=== PATIENT | female | born 1995 | race Caucasian/White ===

== ENCOUNTER 2017-01-09 01:37 | Emergency (ER) | payer SELFPAY ==
[2017-01-09 02:08] LABS: Hematocrit 38 % (35-47); Hemoglobin 12.8 g/dl (12.0-16.0); Mean Corpuscular HGB Conc 34 g/dl (31-36); Mean Corpuscular Hemoglobin 30 pg (27-31); Mean Corpuscular Volume 90 fL (80-97); Mean Platelet Volume 8 um3 (7.4-10.4); Red Blood Count 4.23 10^6/ul (4.0-5.4); Red Cell Distribution Width 13 % (10.5-15); White Blood Count 7.8 10^3/ul (3.5-10.8)
[2017-01-09 02:23] LABS: Albumin 4.2 g/dL (3.2-5.2); BUN/Creatinine Ratio 19.6 (8-20); Calcium 8.8 mg/dL (8.6-10.3); EGFR African American 177.5 (>60); Globulin 2.7 g/dL (2-4); Potassium 3.2 mmol/L (3.5-5.0); Total Bilirubin 0.4 mg/dL (0.2-1.0); Total Protein 6.9 g/dL (6.4-8.9)
[2017-01-09] MEDS ORDERED: Potassium Chlor TAB* 20 MEQ TAB.ER PO ONE (04:09)
--- NOTE | 2017-01-09 06:31 | ED ---
Carmelina Negron Edward, scribed for Devon Padilla on 01/09/17 at 0207 . Substance Abuse/Use - HPI Summary HPI Summary: 21 y/o female BIBA c/o EtOH intoxication. LEVEL 5 CAVEAT DUE TO ETOH INTOXICATION - History Of Current Complaint Chief Complaint: EDSubstanceAbuse Stated Complaint: ETOH Hx From Patient Unobtainable Due To: Other - EtOH INTOXICATION PMH/Surg Hx/FS Hx/Imm Hx Previously Healthy: Yes - LEVEL 5 CAVEAT Cardiovascular History: Denies: Hx Myocardial Infarction Opthamlomology History: Denies: Hx Legally Blind - Family History Known Family History: Positive: None - Social History Occupation: Student Lives: Dormitory/Roommates Alcohol Use: Occasionally Hx Substance Use: No Substance Use Type: Reports: None Hx Tobacco Use: No Smoking Status (MU): Never Smoked Tobacco Review of Systems - ROS Summary Review of Systems Summary: LEVEL 5 CAVEAT DUE TO ETOH INTOXICATION. PT IS UNRESPONSIVE. All Other Systems Reviewed And Are Negative: No Physical Exam - Summary Physical Exam Summary: LEVEL 5 CAVEAT DUE TO ETOH INTOXICATION. PT IS UNRESPONSIVE. Triage Information Reviewed: Yes Vital Signs Reviewed: Yes Appearance: Positive: Well-Appearing, No Pain Distress Skin: Positive: Warm, Skin Color Reflects Adequate Perfusion, Dry Head/Face: Positive: Normal Head/Face Inspection Eyes: Positive: EOMI, GABE ENT: Positive: Normal ENT inspection Neck: Positive: Supple, Nontender Respiratory/Lung Sounds: Positive: Clear to Auscultation, Breath Sounds Present Cardiovascular: Positive: RRR, Pulses are Symmetrical in both Upper and Lower Extremities Abdomen Description: Positive: Nontender, Soft Bowel Sounds: Positive: Present Musculoskeletal: Positive: Normal, Strength/ROM Intact Neurological: Positive: Normal, Sensory/Motor Intact, Alert, Oriented to Person Place, Time Diagnostics - Laboratory Result Diagrams: 01/09/17 01:56 01/09/17 01:56 Lab Statement: Any lab studies that have been ordered have been reviewed, and results considered in the medical decision making process. Course/Dx - Course Assessment/Plan: 21 y/o female BIBA c/o EtOH intoxication. LEVEL 5 CAVEAT DUE TO ETOH INTOXICATION. PT IS UNRESPONSIVE. Pt will be d/c home once EtOH levels clear. - Diagnoses Provider Diagnoses: Alcohol intoxication Discharge - Discharge Plan Condition: Stable Disposition: HOME Patient Education Materials: Alcohol Intoxication (ED) Referrals: [facility] [place]] - 3 Days (PLEASE F/U IN 2-3 DAYS) The documentation as recorded by the Carmelina morales Edward accurately reflects the service I personally performed and the decisions made by , Devon Padilla.
[2017-01-09 06:40] VITALS: BP 103/62
== END 2017-01-09 06:43 | disposition home or self-care (01) ==
LOC: ED 01:37
DX: F10.129 Alcohol abuse with intoxication, unspecified (principal)
CPT/HCPCS: 36415; 80053; 80320; 85025; 99283; A9270-GY; G0480